=== PATIENT | female | born 1940 | race Caucasian/White ===

== ENCOUNTER 2024-12-18 14:35 | Inpatient (IN) | payer MEDICARE, OTHER ==
[~2024-12-18] VITALS: Ht 144.8 cm; Wt 38.1 kg
[2024-12-18 15:47] VITALS: BP 155/90; TEMP 97.9
[2024-12-18 16:07] VITALS: BP 155/90; TEMP 97.9
[2024-12-20 10:27] VITALS: BP 155/90; TEMP 97.9
[2024-12-21] MEDS ORDERED: HYDR-894 PO (17:53)
[2024-12-21] MEDS ORDERED: FAMO-132 PO (17:53)
[2024-12-21] MEDS ORDERED: ENOX40DI SQ (17:53)
[2024-12-21] MEDS ORDERED: MAG355OR18 PO (17:53)
[2024-12-21] MEDS ORDERED: CEPH500C2 PO (17:53)
[2024-12-21] MEDS ORDERED: LEVO25TA9 PO (17:53)
[2024-12-21] MEDS ORDERED: LEVE500T9 PO (17:53)
[2024-12-21] MEDS ORDERED: ACET325T53 PO (17:53)
[2024-12-21] MEDS ORDERED: SODI100010 PO (17:53)
[2024-12-21] MEDS ORDERED: HYDR-4209 PO (17:53)
[2024-12-21] MEDS ORDERED: SENN8.6T19 PO (17:53)
[2024-12-21 17:58] VITALS: BP 152/75; TEMP 99.6; O2SAT 96
[2024-12-21 20:00] VITALS: BP 146/73; TEMP 98.1; O2SAT 99
[2024-12-22] MEDS: LEVOTHYROXINE SODIUM 25 MCG TABLET PO SCH (06:35)
[2024-12-22] MEDS: FAMOTIDINE 20 MG TABLET PO SCH (06:35)
[2024-12-22 06:47] LABS: PLATELET COUNT (AUTO) 283 K/uL (179-408); RED BLOOD CELL COUNT(AUTO) 3.08 MIL/uL (3.63-4.92); RED CELL DISTRIBUTION WIDTH 13.8 % (12.3-17.7); WHITE BLOOD COUNT (AUTO) 6.6 K/uL (3.8-11.8)
[2024-12-22 06:50] VITALS: BP 151/78; TEMP 98.1; O2SAT 96
[2024-12-22 07:10] LABS: ASPARTATE AMINOTRANSFERASE 11 U/L (15-37); CREATININE 0.3 mg/dL (0.6-1.3); SODIUM SERUM 131 mmol/L (136-145); TOTAL PROTEIN, SERUM 5.2 g/dL (6.4-8.2); UREA NITROGEN, BLOOD 10 mg/dL (7-18)
[2024-12-22 08:09] VITALS: BP 146/74; TEMP 97.8; O2SAT 98
[2024-12-22] MEDS: SODIUM CHLORIDE 1,000 MG TABLET PO SCH (08:25)
[2024-12-22] MEDS: NITROFURANTOIN/NITROFURAN MAC 100 MG CAPSULE PO SCH ×2 (08:25→20:15)
[2024-12-22] MEDS: ENOXAPARIN SODIUM 40 MG/0.4 ML DISP.SYRIN SQ SCH (08:26)
[2024-12-22] MEDS: HYDROCODONE/APAP 5-325MG TABLET PO PRN (08:29)
[2024-12-22 15:52] VITALS: BP 137/74; TEMP 97.6; O2SAT 98
[2024-12-22] MEDS: SENNOSIDES 1 TABLET PO SCH (20:15)
[2024-12-22 20:25] VITALS: BP 146/67; TEMP 98.2; O2SAT 96
[2024-12-23 06:33] VITALS: BP 138/80; TEMP 98.2; O2SAT 96
[2024-12-23 08:00] VITALS: BP 150/81; TEMP 97.8; O2SAT 98
[2024-12-23] MEDS: BISACODYL 5 MG TABLET.DR PO ONE (13:30)
[2024-12-23 16:38] VITALS: BP 122/64; TEMP 97.8; O2SAT 98
[2024-12-23 21:13] VITALS: BP 142/73; TEMP 98.2; O2SAT 97
[2024-12-24 06:55] VITALS: BP 146/78; TEMP 98.3; O2SAT 97
[2024-12-24 07:56] VITALS: BP 173/78; TEMP 97.7; O2SAT 98
[2024-12-24 08:14] LABS: CREATININE 0.3 mg/dL (0.6-1.3); SODIUM SERUM 134 mmol/L (136-145); UREA NITROGEN, BLOOD 11 mg/dL (7-18)
[2024-12-24] MEDS: LACTULOSE 20 G/30 ML LIQUID UDC PO ONE (09:51)
[2024-12-24] MEDS: MIRALAX 17 GM POWD.PACK PO SCH (09:51)
[2024-12-24] MEDS: DOCUSATE SODIUM 100 MG CAPSULE PO SCH (09:51)
[2024-12-24 15:32] VITALS: BP 130/68; TEMP 97.9; O2SAT 98
[2024-12-24 20:42] VITALS: BP 135/76; TEMP 95; O2SAT 95
[2024-12-24 20:48] VITALS: BP 151/65; TEMP 97; O2SAT 97
[2024-12-25 08:39] VITALS: BP 126/65; TEMP 98.2; O2SAT 98
[2024-12-25 16:31] VITALS: BP 128/71; TEMP 98.7; O2SAT 97
[2024-12-25 19:51] VITALS: BP 133/67; TEMP 98.6; O2SAT 98
[2024-12-26 05:41] VITALS: BP 122/60; TEMP 98; O2SAT 98
[2024-12-26 08:06] VITALS: BP 158/62; TEMP 97.8; O2SAT 99
[2024-12-26 20:00] VITALS: BP 168/69; TEMP 98; O2SAT 98
[2024-12-26] MEDS ORDERED: NITROFURANTOIN/NITROFURAN MAC 100 MG CAPSULE PO ONE (23:46)
[2024-12-27 06:33] VITALS: BP 162/81; TEMP 97.8; O2SAT 98
[2024-12-27 08:00] VITALS: BP 155/70; TEMP 97.6; O2SAT 98
[2024-12-27] MEDS: LACTULOSE 20 G/30 ML LIQUID UDC PO SCH (13:23)
[2024-12-27 15:58] VITALS: BP 103/53; TEMP 97; O2SAT 98
[2024-12-27 20:00] VITALS: BP 130/54; TEMP 98; O2SAT 99
[2024-12-27] MEDS: ACETAMINOPHEN 325 MG TABLET PO PRN (22:02)
[2024-12-28 06:45] VITALS: BP 153/49; TEMP 97.9; O2SAT 98
[2024-12-28 07:19] LABS: PLATELET COUNT (AUTO) 581 K/uL (179-408); RED BLOOD CELL COUNT(AUTO) 3.43 MIL/uL (3.63-4.92); RED CELL DISTRIBUTION WIDTH 14.1 % (12.3-17.7); WHITE BLOOD COUNT (AUTO) 6.1 K/uL (3.8-11.8)
[2024-12-28 07:51] LABS: CREATININE 0.4 mg/dL (0.6-1.3); SODIUM SERUM 133 mmol/L (136-145); UREA NITROGEN, BLOOD 8 mg/dL (7-18)
[2024-12-28 08:00] VITALS: BP 151/71; TEMP 97.6; O2SAT 97
[2024-12-28 16:01] VITALS: BP 130/65; TEMP 98.1; O2SAT 98
[2024-12-28 20:00] VITALS: BP 150/70; TEMP 98.4; O2SAT 98
[2024-12-29 05:00] VITALS: BP 158/78; TEMP 98.4; O2SAT 99
[2024-12-29 08:02] VITALS: BP 161/74; TEMP 97.6; O2SAT 98
[2024-12-29 16:18] VITALS: BP 132/70; TEMP 97.4; O2SAT 97
[2024-12-29 20:01] VITALS: BP 110/65; TEMP 97.7; O2SAT 96
[2024-12-30 06:45] VITALS: BP 142/71; TEMP 97.5; O2SAT 98
[2024-12-30 08:00] VITALS: BP 131/51; TEMP 98; O2SAT 99
[2024-12-30 16:02] VITALS: BP 124/65; TEMP 98; O2SAT 95
[2024-12-30 20:00] VITALS: BP 139/79; TEMP 98; O2SAT 99
[2024-12-31 06:42] VITALS: BP 159/79; TEMP 97.7; O2SAT 99
[2024-12-31 08:00] VITALS: BP 148/75; TEMP 98.2; O2SAT 97
[2024-12-31 09:00] VITALS: BP 148/75; TEMP 98.2; O2SAT 97
[2024-12-31 16:00] VITALS: BP 145/70; TEMP 97.8; O2SAT 97
[2024-12-31 20:00] VITALS: BP 158/75; TEMP 97.8; O2SAT 100
[2025-01-01 05:00] VITALS: BP 133/71; TEMP 97.7; O2SAT 96
[2025-01-01 08:07] VITALS: BP 120/72; TEMP 97.8; O2SAT 98
[2025-01-01 16:30] VITALS: BP 117/76; TEMP 97.6; O2SAT 97
== END 2025-01-01 19:47 | disposition home health service (06) | DRG 559 ==
PROVIDERS: ADMIT Physical Medicine & Rehabilitation Pain Medicine; ATTEND Physical Medicine & Rehabilitation Pain Medicine
DX: Z47.1 Aftercare following joint replacement surgery (principal); G93.41 Metabolic encephalopathy; I62.03 Nontraumatic chronic subdural hemorrhage; D68.59 Other primary thrombophilia; N39.0 Urinary tract infection, site not specified; E87.1 Hypo-osmolality and hyponatremia; Z91.81 History of falling; Z96.642 Presence of left artificial hip joint; B96.20 Unspecified Escherichia coli [E. coli] as the cause of diseases classified elsewhere; E03.9 Hypothyroidism, unspecified; K44.9 Diaphragmatic hernia without obstruction or gangrene; K76.89 Other specified diseases of liver; R29.6 Repeated falls; Z74.09 Other reduced mobility; R14.0 Abdominal distension (gaseous)
CPT/HCPCS: 36415; 73501; 74018; 83735; 84100; 85025; 97535-GO-CO; A4663; J1650